=== PATIENT | male | born 1995 | race Two or more races ===

== ENCOUNTER 2023-12-24 11:00 | Outpatient (CLI) | payer OTHER ==
--- NOTE | 2023-12-24 20:58 | XRAY Report ---
PROCEDURE: Knee 3V RT INDICATIONS: KNEE PAIN, RIGHT TECHNIQUE: 3 views of the knee(s) were acquired. COMPARISON: None. FINDINGS: Bones: No fractures or dislocations. No suspicious bony lesions. Soft tissues: Small knee joint effusion. No suspicious soft tissue calcifications or masses. IMPRESSION: No acute bony abnormality. Small knee joint effusion. If pain persists with conservative management, consider further evaluation with repeat radiographs in 7-10 days or cross-sectional imaging such as CT or MRI. Reviewed by: Rosalind Abreu MD, PhD on 12/24/2023 8:57 PM PDT Approved by: Rosalind Abreu MD, PhD on 12/24/2023 8:57 PM PDT Station ID: [id number]
== END 2023-12-24 11:15 | disposition home or self-care (01) ==
LOC: DI.N 11:00
PROVIDERS: ATTEND Family Medicine
DX: M25.561 Pain in right knee (principal); M25.461 Effusion, right knee

== ENCOUNTER 2024-01-23 08:20 | Outpatient (CLI) | payer OTHER ==
--- NOTE | 2024-01-23 10:04 | MRI Report ---
Knee RT WO CLINICAL INFORMATION: 28 years of age, Male, R KNEE PAIN. COMPARISON: Radiograph on 12/24/2023 Technique: Multisequence, multiplanar MRI of the right knee was performed without intravenous contras t. FINDINGS: Menisci: In the medial meniscus, there is mild intermargin blunting of the meniscus body (5:19). The lateral meniscus is unremarkable. Cruciate ligaments: The ACL is mildly redundant with mildly T2 hyperintense, indistinct fibers in the mid segment, concerning for partial thickness tear at the mid fiber. The PCL is intact. MCL/LCL: The MCL is unremarkable. The biceps femoris tendon is unremarkable. The fibular collateral ligament is unremarkable. The iliotibial band is intact. The popliteus muscle and tendon also appear intact. Extensor mechanism: The quadricep tendon is unremarkable. The patella tendon is unremarkable. Patellofemoral joint: Alignment within the patellofemoral joint is normal. The patellofemoral ligame nts are intact. Mild chondromalacia in the medial patellar facet. There is full-thickness low signal fissuring in the central trochlea. Scattered small area of T2 hyperintensity in the patella, nonspeci fic. Cartilage and bone: In the medial compartment, the cartilage is well-maintained. In the lateral ahmet rtment, there is mild chondral irregularity in the nonweightbearing portion of the femoral condyle. T here is minimal marrow edema of the posterior aspect of the medial femoral condyle, nonspecific and m ay represent mild marrow contusion. There is marrow contusion of the sulcus terminalis, without fract ure line. There is mild marrow contusion of the lateral tibial plateau, without fracture line. Miscellaneous: Small knee effusion. No popliteal cyst. No intra-articular bodies are identified. Norm al muscle signal intensity and morphology. No vascular anomaly. IMPRESSION: 1.Inner margin blunting of the medial meniscus body. 2.Findings concerning for partial thickness tear of the mid ACL fiber. 3.Marrow contusion of the sulcus terminalis, and the lateral tibial plateau. Minimal marrow contusion of the medial tibial plateau. 4.Mild chondrosis of the patellofemoral and the lateral compartment. Reviewed by: Yesi Porter MD on 01/23/2024 10:03 AM PDT Approved by: Yesi Porter MD on 01/23/2024 10:03 AM PDT Station ID: [id number]
== END 2024-01-23 08:21 | disposition home or self-care (01) ==
LOC: DI 08:20
PROVIDERS: ATTEND Nurse Practitioner Family
DX: S80.11XA Contusion of right lower leg, initial encounter (principal); M22.41 Chondromalacia patellae, right knee; M25.461 Effusion, right knee